=== PATIENT | male | born 1985 | race Caucasian/White ===

== ENCOUNTER 2016-12-10 09:56 | Emergency (ER) | payer OTHER ==
[2016-12-10 10:15] VITALS: TEMP 98.4
[2016-12-10] MEDS ORDERED: KETOROLAC 60 MG/2 ML VIAL IM STA (10:44)
--- NOTE | 2016-12-10 11:29 | XR ---
PA chest x-ray with left RIBS HISTORY: Injury and left-sided rib pain Frontal view of the chest correlated to prior chest x-ray 28 March 2012. 4 views of the left ribs There is no pneumothorax or pleural effusion. Cardiomediastinal silhouette, pulmonary vascularity and ana maría are stable. No displaced rib fracture. For increased sensitivity bone scan could be performed a s indicated. IMPRESSION: No acute abnormalities evident
--- NOTE | 2016-12-10 11:48 | ED ---
General Adult HPI - General Chief complaint: Extremity Problem,Nontraumatic Stated complaint: LEFT RIB PAIN Time Seen by Provider: 12/10/16 10:39 Source: patient Mode of arrival: ambulatory Limitations: no limitations - History of Present Illness Initial comments: This 30-year-old white male presents with colicky complaint of some left rib pain. This occurred 2 days ago after he sneezed. He felt a popping sensation in his left lateral chest at that time. He has had re-exacerbation of the pain every time he moves his left chest, coughs, or has deep inspiration. He has slight shortness of breath. He denies any prior similar incidents. He has tried some Motrin with limited relief. No other complaints or modifying factors. He denies any trauma. - Related Data Home Medications Medication Instructions Recorded Confirmed Ibuprofen [Motrin] 400 mg PO Q6HR PRN 12/10/16 12/10/16 Previous Rx's Medication Instructions Recorded Ibuprofen [Motrin] 800 mg PO Q8HR PRN #20 tab 12/10/16 traMADol HCl [Ultram] 50 - 100 mg PO Q6H PRN #15 tab 12/10/16 Allergies Allergy/AdvReac Type Severity Reaction Status Date / Time No Known Allergies Allergy Verified 12/10/16 11:20 Review of Systems ROS Statement: Those systems with pertinent positive or pertinent negative responses have been documented in the HPI. ROS Other: All systems not noted in ROS Statement are negative. Past Medical History Past Medical History: No Reported History History of Any Multi-Drug Resistant Organisms: None Reported Past Surgical History: Orthopedic Surgery Additional Past Surgical History / Comment(s): Knee scope Past Psychological History: No Psychological Hx Reported Smoking Status: Current every day smoker Past Alcohol Use History: None Reported Past Drug Use History: None Reported General Exam - General Exam Comments Initial Comments: GENERAL: The patient is well nourished and well hydrated. VITAL SIGNS: Heart rate, blood pressure, respiratory rate reviewed as recorded in nurse's notes. EYES: Pupils are round and reactive. Extraocular movements are intact. No conjunctival / lid redness or swelling. ENT: No external evidence of injury, swelling, or ecchymosis. Airway is patent. Throat is clear. NECK: Nontender. No swelling or evidence of injury. No subcutaneous emphysema. Trachea is midline. No thyroid mass. HEART: Regular rate and rhythm. Good peripheral pulses. LUNGS/CHEST: Breath sounds clear and equal bilaterally. No rales, rhonchi, or wheezes. There is some point tenderness noted to the left lateral inferior ribs. There is no subcutaneous emphysema or ecchymosis noted. ABDOMEN: Abdomen soft without tenderness. No palpable masses or organomegaly. No peritoneal signs. No abdominal wall swelling or ecchymosis. EXTREMITIES: No extremity tenderness. Normal muscle tone and function. No thoracolumbar tenderness. NEUROLOGIC: Sensation is grossly intact. Cranial nerve exam reveals face is symmetrical, tongue is midline, speech is clear. SKIN: No abrasions or ecchymosis is noted. No induration or masses noted. PSYCHIATRIC: Alert and oriented. Appropriate behavior and judgment. Limitations: no limitations Course Vital Signs 12/10/16 10:11 Temperature 98.4 F Pulse Rate 87 Respiratory 20 Rate Blood Pressure 140/89 O2 Sat by Pulse 96 Oximetry Medical Decision Making - Medical Decision Making The patient was seen and examined. A left rib and chest x-ray was done and reported per radiology does not show any acute processes. There is no evidence of pneumothorax or evidence of rib fracture. I reviewed the x-rays as well and agree. He receives Toradol intramuscularly with moderate relief of pain. She felt as though he does have a left rib strain and that he is stable for discharge. Is counseled regarding his condition in detail. Detail and leaves in no distress. Disposition Clinical Impression: Rib pain on left side Disposition: HOME SELF-CARE Condition: Good Instructions: Chest Wall Pain (ED) Prescriptions: Ibuprofen [Motrin] 800 mg PO Q8HR PRN #20 tab PRN Reason: Pain traMADol HCl [Ultram] 50 - 100 mg PO Q6H PRN #15 tab PRN Reason: Pain Referrals: Davey Harper MD [Primary Care Provider] - 12/15/16 Time of Disposition: 11:48
[2016-12-10 12:01] VITALS: BP 159/84; PULSE 79; RESP 16
== END 2016-12-10 12:01 | disposition home or self-care (01) ==
LOC: EC 09:56
DX: R07.81 Pleurodynia (principal); F17.200 Nicotine dependence, unspecified, uncomplicated
CPT/HCPCS: 99283; 96372; 71101; J1885

== ENCOUNTER 2021-06-21 16:49 | Emergency (ER) | payer OTHER ==
[2021-06-21 17:33] VITALS: TEMP 97.9
[2021-06-21] MEDS ORDERED: MORPHINE SULFATE IR 15 MG TABLET PO STA (18:02)
[2021-06-21] MEDS ORDERED: KETOROLAC 15 MG/ML 1 ML VIAL IVP STA (18:02)
--- NOTE | 2021-06-21 19:25 | XR ---
EXAMINATION TYPE: XR wrist complete LT DATE OF EXAM: 06/21/2021 COMPARISON: NONE HISTORY: Wrist pain TECHNIQUE: 3 views FINDINGS: There is transverse and longitudinal fracture of the distal radial metaphysis. Fracture tianna e extends to the radiocarpal joint. There is no dislocation. The carpal bones are intact. Distal ulna is intact. IMPRESSION: Acute nondisplaced transverse and longitudinal fracture of the distal radius.
--- NOTE | 2021-06-21 19:26 | XR ---
EXAMINATION TYPE: XR hand complete LT DATE OF EXAM: 06/21/2021 COMPARISON: NONE HISTORY: Pain TECHNIQUE: 3 views FINDINGS: Metacarpals are intact. There is some soft tissue swelling around the hand. The fingers are intact. IMPRESSION: No acute bony abnormality of the hand.
--- NOTE | 2021-06-21 19:27 | XR ---
EXAMINATION TYPE: XR elbow complete LT DATE OF EXAM: 06/21/2021 COMPARISON: NONE HISTORY: Pain TECHNIQUE: 3 views FINDINGS: I see no fracture nor dislocation. Joint spaces are normal. There is no sign of elbow joint effusion. IMPRESSION: Negative left elbow exam.
--- NOTE | 2021-06-21 19:28 | XR ---
EXAMINATION TYPE: XR forearm LT DATE OF EXAM: 06/21/2021 COMPARISON: NONE HISTORY: Wrist pain TECHNIQUE: 2 views FINDINGS: There is slightly impacted transverse fracture distal radial metaphysis. Fracture line also extends to the radiocarpal joint. The ulna is intact. Radiohumeral joint is normal. IMPRESSION: Acute fracture of the distal radius. No significant overall displacement.
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
[2021-06-21 22:02] VITALS: BP 105/68; PULSE 82; RESP 16
== END 2021-06-21 21:58 | disposition home or self-care (01) ==
LOC: EC 16:49
DX: S52.592A Other fractures of lower end of left radius, initial encounter for closed fracture (principal); F17.200 Nicotine dependence, unspecified, uncomplicated; Z79.1 Long term (current) use of non-steroidal anti-inflammatories (NSAID); V28.4XXA Motorcycle driver injured in noncollision transport accident in traffic accident, initial encounter; Y92.410 Unspecified street and highway as the place of occurrence of the external cause; Y93.55 Activity, bike riding
CPT/HCPCS: 73080; 73090; 73110; 73130; 29125; 99284; 96374; J1885

== ENCOUNTER 2022-03-24 15:35 | Emergency (ER) | payer OTHER ==
[2022-03-24 16:43] VITALS: RESP 16; TEMP 98
--- NOTE | 2022-03-24 17:34 | XR ---
EXAMINATION TYPE: XR shoulder complete RT DATE OF EXAM: 03/24/2022 COMPARISON: NONE HISTORY: Injury. Pain. TECHNIQUE: 3 views FINDINGS: There is comminuted nondisplaced fracture of the greater tuberosity of the humerus. There i s no dislocation at the shoulder joint. The scapula is intact. IMPRESSION: Comminuted fracture of the greater tuberosity of the humerus without significant displace ment.
--- NOTE | 2022-03-24 17:35 | XR ---
EXAMINATION TYPE: XR humerus RT DATE OF EXAM: 03/24/2022 COMPARISON: NONE HISTORY: Pain. Injury TECHNIQUE: 2 views FINDINGS: There is comminuted fracture of the greater tuberosity humerus. No significant displacement . The elbow joint appears intact IMPRESSION: Fracture of the greater tuberosity.
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
[2022-03-24 19:58] VITALS: BP 116/80; PULSE 69
== END 2022-03-24 19:55 | disposition home or self-care (01) ==
LOC: EC 15:35
DX: S42.251A Displaced fracture of greater tuberosity of right humerus, initial encounter for closed fracture (principal); F17.200 Nicotine dependence, unspecified, uncomplicated; V29.9XXA Motorcycle rider (driver) (passenger) injured in unspecified traffic accident, initial encounter; Y92.410 Unspecified street and highway as the place of occurrence of the external cause
CPT/HCPCS: 99284

== ENCOUNTER → 2022-04-24 | Outpatient (CLI) | payer BC, OTHER ==
--- NOTE | 2022-04-24 10:00 | CT ---
EXAMINATION TYPE: CT shoulder RT wo con DATE OF EXAM: 04/24/2022 COMPARISON: X-ray dated 03/24/2022 HISTORY: Rt Shoulder pain CT DLP: 297.4 mGycm Automated exposure control for dose reduction was used. TECHNIQUE: CT scan of the right shoulder without IV contrast administration. 3-D reconstruction image s were generated on an independent workstation and reviewed. FINDINGS: Comminuted fracture with focal lateral depression is seen involving the right humeral head greater tu berosity with multiple displaced bone fragments mainly seen along the posterior aspect of t he humeral head. This could represent sequela of previous dislocation with suspected associated Hill- Sachs injury. Please correlate clinically. No humeral head dislocation. No other definite fracture line identified. Tiny osteophytosis of the ac romioclavicular joint and inferior aspect of the glenohumeral articulation. No signs of rotator cuff tendinitis. Maintained acromiohumeral distance. IMPRESSION: Fractured lateral aspect of the humeral head with focal depression and suspected associated Hill-Sach s injury as described above, for clinical correlation and orthopedic consultation.
== END | disposition home or self-care (01) ==
LOC: RADCTMAIN 08:28
PROVIDERS: ATTEND Orthopaedic Surgery
DX: S42.251A Displaced fracture of greater tuberosity of right humerus, initial encounter for closed fracture (principal)

== ENCOUNTER 2024-05-13 21:18 | Observation (INO) | payer BC, OTHER ==
--- NOTE | 2024-05-13 21:33 | ED ---
Skin/Abscess/FB HPI - General Chief complaint: Skin/Abscess/Foreign Body Stated complaint: L hand abcess Time Seen by Provider: 05/13/24 21:30 Source: patient, RN notes reviewed Mode of arrival: ambulatory Limitations: no limitations - History of Present Illness Initial comments: This is a 38-year-old female presents emergency department chief complaint of an abscess to his second digit. Patient states that he noticed this abscess formed roughly 2 days ago, he believes that it started from an ingrown hair. Patient is endorsing pain of the second digit with mild radiation of the hand. He denies palmar pain, fevers, nausea, vomiting, weakness, abdominal pain. Patient states that he took a dose of penicillin this morning which she has had leftover from a previous prescription. Patient denies known history of MRSA infection. He denies recent injury of the affected finger. - Related Data Home Medications Medication Instructions Recorded Confirmed No Known Home Medications 05/14/24 05/14/24 Allergies Allergy/AdvReac Type Severity Reaction Status Date / Time No Known Allergies Allergy Verified 05/14/24 10:22 Review of Systems ROS Statement: Those systems with pertinent positive or pertinent negative responses have been documented in the HPI. ROS Other: All systems not noted in ROS Statement are negative. Past Medical History Past Medical History: No Reported History History of Any Multi-Drug Resistant Organisms: None Reported Past Surgical History: Orthopedic Surgery Additional Past Surgical History / Comment(s): Knee scope Past Psychological History: No Psychological Hx Reported Smoking Status: Current every day smoker Past Alcohol Use History: None Reported Past Drug Use History: None Reported General Exam Limitations: no limitations General appearance: alert, in no apparent distress Head exam: Present: atraumatic, normocephalic, normal inspection Eye exam: Present: normal appearance, PERRL, EOMI. Absent: scleral icterus, conjunctival injection, periorbital swelling ENT exam: Present: normal exam, mucous membranes moist Neck exam: Present: normal inspection. Absent: tenderness, meningismus, ly mphadenopathy Respiratory exam: Present: normal lung sounds bilaterally. Absent: respiratory distress, wheezes, rales, rhonchi, stridor Cardiovascular Exam: Present: regular rate, normal rhythm, normal heart sounds. Absent: systolic murmur, diastolic murmur, rubs, gallop, clicks GI/Abdominal exam: Present: soft, normal bowel sounds. Absent: distended, tenderness, guarding, rebound, rigid Left Hand Wrist exam: Present: tenderness (first MCP), swelling, erythema, other (Noted abscess with purulent drainage, erythema and edema. Pain with palpation. Patient is able to moderately flex affected finger.). Absent: normal inspection, ecchymosis Vascular: Present: radial pulse (2+). Absent: vascular compromise Back exam: Present: normal inspection Neurological exam: Present: alert, oriented X3, CN II-XII intact Psychiatric exam: Present: normal affect, normal mood Skin exam: Present: warm, dry, intact, normal color, other (See above extremity description for left first digit abscess, edema and erythema.). Absent: rash Course Vital Signs 05/13/24 05/14/24 21:26 00:01 Temperature 98.7 F 98.4 F Pulse Rate 112 H 105 H Respiratory 20 20 Rate Blood Pressure 145/87 142/85 O2 Sat by Pulse 97 98 Oximetry Medical Decision Making - Medical Decision Making Was pt. sent in by a medical professional or institution (OSIRIS Samson, [employer]PERVISOR, urgent care, hospital, or retirement...) When possible be specific @ -No Did you speak to anyone other than the patient for history (EMS, parent, family, police, friend...)? What history was obtained from this source @ -No Did you review nursing and triage notes (agree or disagree)? Why? @ -I reviewed and agree with nursing and triage notes Were old charts reviewed (outside hosp., previous admission, EMS record, old EKG, old radiological studies, urgent care reports/EKG's, retirement records)? Report findings @ -No old charts were reviewed Differential Diagnosis (chest pain, altered mental status, abdominal pain women, abdominal pain men, vaginal bleeding, weakness, fever, dyspnea, syncope, headach e, dizziness, GI bleed, back pain, seizure, CVA, palpatations, mental health, musculoskeletal)? @ -Cellulitis, osteomyelitis, abscess, this list is not all inclusive. EKG interpreted by me (3pts min.). @ -None X-rays interpreted by me (1pt min.). @ -xray of the left hand reveals inflammatory soft tissue edema and swelling persistent with mild flexion of the digits and regional osteopenia, small nondisplaced transverse fracture of the ulnar styloid. CT interpreted by me (1pt min.). @ -None done U/S interpreted by me (1pt. min.). @ -None done What testing was considered but not performed or refused? (CT, X-rays, U/S, labs)? Why? @ -None What meds were considered but not given or refused? Why? @ -None Did you discuss the management of the patient with other professionals (professionals i.e. , PA, [employer] SUPERVISOR, lab, RT, psych nurse, social economist, lawyer criminal, teacher, employment officer, watch case polisher)? Give summary @ -Spoke with [facility] midlevel provider, Mirna Torres NP, in regard to the patient's elevated white blood cell count and signs of infection including tachycardia and left first digit abscess and pain. Patient is accepted for admission, and he will be started on IV antibiotics. Was smoking cessation discussed for >3mins.? @ -No Was critical care preformed (if so, how long)? @ -No Were there social determinants of health that impacted care today? How? (Homelessness, low income, unemployed, alcoholism, drug addiction, transportation, low edu. Level, literacy, decrease access to med. care, [place] [facility], rehab)? @ -No Was there de-escalation of care discussed even if they declined (Discuss DNR or withdrawal of care, Hospice)? DNR status @ -No What co-morbidities impacted this encounter? (DM, HTN, Smoking, COPD, CAD, Cancer, CVA, ARF, Chemo, Hep., AIDS, mental health diagnosis, sleep apnea, morbid obesity)? @ -None Was patient admitted / discharged? Hospital course, mention meds given and route, prescriptions, significant lab abnormalities, going to OR and other pe rtinent info. @ -admitted 38-year-old male with left first digit abscess. On examination abscess has noted drainage, pain with palpation, erythema and edema. At this time labs will be ordered in addition to a x-ray of the hand. Evaluation of labs CBC reveals leukocytosis of 17, neutrophils of 15.2. CMP remarkable for hypokalmeia 3.3. Formal results of x-ray interpretation and internal medicine consulted for admission and IV antibiotics. Patient is excepted for admission and will be started on vancomycin. Additionally patient was provided with oral Tylenol and Motrin and pain medication due to a mildly elevated temperature and meeting SIRS criteria. He is also given a 1 L fluid bolus. Case discussed with my attending Dr. Corley Undiagnosed new problem with uncertain prognosis? @ -No Drug Therapy requiring intensive monitoring for toxicity (Heparin, Nitro, I nsulin, Cardizem)? @ -No Were any procedures done? @ -No Diagnosis/symptom? @ -Left hand first digit cellulitis with abscess Acute, or Chronic, or Acute on Chronic? @ -Acute Uncomplicated (without systemic symptoms) or Complicated (systemic symptoms)? @ -complicated Side effects of treatment? @ -No Exacerbation, Progression, or Severe Exacerbation? @ -No Poses a threat to life or bodily function? How? (Chest pain, USA, MS, pneumonia, PE, COPD, DKA, ARF, appy, cholecystitis, CVA, Diverticulitis, Homicidal, Suicidal, threat to staff... and all critical care pts) @ -Initially, untreated severe cellulitis with abscess can lead to bone involvement and further infection - Lab Data Result diagrams: 05/15/24 04:24 05/16/24 06:31 Lab Results 05/13/24 05/13/24 05/13/24 Range/Units 22:13 22:13 22:13 WBC 17.0 H (3.8-10.6) k/uL RBC 4.53 (4.30-5.90) m/uL Hgb 13.5 (13.0-17.5) gm/dL Hct 41.2 (39.0-53.0) % MCV 90.8 (80.0-100.0) fL MCH 29.9 (25.0-35.0) pg MCHC 32.9 (31.0-37.0) g/dL RDW 13.9 (11.5-15.5) % Plt Count 317 (150-450) k/uL MPV 8.0 Neutrophils % 89 % Lymphocytes % 5 % Monocytes % 4 % Eosinophils % 1 % Basophils % 0 % Neutrophils # 15.2 H (1.3-7.7) k/uL Lymphocytes # 0.9 L (1.0-4.8) k/uL Monocytes # 0.7 (0-1.0) k/uL Eosinophils # 0.1 (0-0.7) k/uL Basophils # 0.0 (0-0.2) k/uL Sodium 136 L (137-145) mmol/L Potassium 3.3 L (3.5-5.1) mmol/L Chloride 101 (98-107) mmol/L Carbon Dioxide 26 (22-30) mmol/L Anion Gap 9 mmol/L BUN 12 (9-20) mg/dL Creatinine 0.68 (0.66-1.25) mg/dL Est GFR (CKD-EPI)AfAm >90 (>60 ml/min/1.73 sqM) Est GFR (CKD-EPI)NonAf >90 (>60 ml/min/1.73 sqM) Glucose 133 H (74-99) mg/dL Plasma Lactic Acid Sebastian 1.7 (0.7-2.0) mmol/L Calcium 9.0 (8.4-10.2) mg/dL Total Bilirubin 1.0 (0.2-1.3) mg/dL AST 21 (17-59) U/L ALT 27 (4-49) U/L Alkaline Phosphatase 129 H (38-126) U/L Total Protein 6.9 (6.3-8.2) g/dL Albumin 4.0 (3.5-5.0) g/dL Disposition Clinical Impression: Cellulitis of finger of left hand Disposition: ADMITTED IP TO THIS [facility] Condition: Good Is patient prescribed a controlled substance at d/c from ED?: No Decision to Admit Reason: Admit from EC Decision Date: 05/14/24 Decision Time: 00:14
[2024-05-13 22:42] LABS: Basophils % (A) 0 %; Eosinophils # (A) 0.1 k/uL (0-0.7); Eosinophils % (A) 1 %; HCT 41.2 % (39.0-53.0); HGB 13.5 gm/dL (13.0-17.5); Lymphocytes # (A) 0.9 k/uL (1.0-4.8); Lymphocytes % (A) 5 %; MCH 29.9 pg (25.0-35.0); MCHC 32.9 g/dL (31.0-37.0); MCV 90.8 fL (80.0-100.0); Monocytes # (A) 0.7 k/uL (0-1.0); Monocytes % (A) 4 %; Neutrophils # (A) 15.2 k/uL (1.3-7.7); Neutrophils % (A) 89 %; Platelet Count 317 k/uL (150-450); RBC 4.53 m/uL (4.30-5.90); RDW 13.9 % (11.5-15.5)
[2024-05-13 22:58] LABS: ALT 27 U/L (4-49); AST 21 U/L (17-59); African American GFR (CKD) >90 (>60 ml/min/1.73 sqM); Alkaline Phosphatase 129 U/L (38-126); Anion Gap 9 mmol/L; Blood Urea Nitrogen 12 mg/dL (9-20); Carbon Dioxide 26 mmol/L (22-30); Chloride 101 mmol/L (98-107); Glucose 133 mg/dL (74-99); Non-African American GFR(CKD) >90 (>60 ml/min/1.73 sqM); Potassium 3.3 mmol/L (3.5-5.1); Sodium 136 mmol/L (137-145); Total Protein 6.9 g/dL (6.3-8.2)
[2024-05-13] MEDS: SODIUM CHLORIDE 0.9% 1,000 ML IV STA (23:45)
[2024-05-13] MEDS: HYDROmorphone 0.5 MG/0.5 ML SYRINGE IVP STA (23:51)
[2024-05-14] MEDS ORDERED: ACETAMINOPHEN TAB 325 MG TAB PO PRN (00:12)
[2024-05-14] MEDS ORDERED: NALOXONE 0.4 MG/ML 1 ML VIAL IV PRN (00:12)
[2024-05-14] MEDS ORDERED: VANCOMYCIN IV PER PHARMACY 1 EACH MISC MISCELLANE PRN (00:13)
--- NOTE | 2024-05-14 00:32 | XR ---
EXAM: XR Left Hand Complete, 3 or More Views CLINICAL HISTORY: ITS.REASON XR Reason: second digit abscess TECHNIQUE: Frontal, lateral and oblique views of the left hand. COMPARISON: None FINDINGS: Bones/joints: Mild osseous demineralization. A small nondisplaced transverse fracture of the ulna styloid. No bony destruction or other acute fracture noted. No dislocation. Soft tissues: Significant soft tissue edema/swelling of the left hand, most likely inflammatory/cellulitis. Persistent mild flexion of the second to fifth digit from the MCP and PIP joints. No radiopaque foreign body. Other findings: Mild degenerative arthrosis of the radiocarpal and medial carpometacarpal articulations.. IMPRESSION: Likely inflammatory soft tissue edema/swelling/cellulitis of the left hand with persistent mild flexion of the digits and regional osteopenia., Osteomyelitis is less likely but not ruled out. A small nondisplaced transverse fracture of the ulnar styloid. No bony destruction or periosteal thickening or sclerosis is evident. .
[2024-05-14] MEDS: ACETAMINOPHEN TAB 500 MG TAB PO STA (00:42)
[2024-05-14] MEDS: IBUPROFEN 800 MG TAB PO STA (00:42)
[2024-05-14] MEDS: VANCOMYCIN 1,750 MG in SODIUM CHLORIDE 0.9% 500 ML 500 ML IVPB ONE (02:06)
--- NOTE | 2024-05-14 10:30 | P.CNOR ---
History of Present Illness - [facility] Consult date: 05/14/24 Consult reason: other (Abscess left hand.) History of present illness: This is a 38-year-old male who presented to the emergency department last evening with increased swelling and redness to the left hand/index finger. The patient states that he had an ingrown hair on the dorsum of his index finger which she was able to remove and states that the hair was about an inch long. He states that it did break off and he was unable to retrieve the entire piece of hair. The area then began getting red and swollen. He developed some drainage from the area which caused him to seek medical treatment. He is admitt ed to internal medicine and is placed on IV vancomycin. We are consulted for orthopedic evaluation. The patient denies recent fever or chills. The patient is a current everyday smoker. His white blood cell count is elevated at 17 on admission. Past Medical History Past Medical History: No Reported History History of Any Multi-Drug Resistant Organisms: None Reported Past Surgical History: Orthopedic Surgery Additional Past Surgical History / Comment(s): Right knee scope Past Psychological History: No Psychological Hx Reported Smoking Status: Current every day smoker Past Alcohol Use History: None Reported Past Drug Use History: None Reported Medications and Allergies Home Medications Medication Instructions Recorded Confirmed Type No Known Home Medications 05/14/24 05/14/24 History Allergies Allergy/AdvReac Type Severity Reaction Status Date / Time No Known Allergies Allergy Verified 05/14/24 10:22 Physical Examination This is a pleasant 38-year-old male in no acute distress. He is alert and oriented x 3. Exam of the left hand reveals redness and swelling to the index finger. There is some opening with mild purulent drainage on the dorsal aspect. He has full extension of the finger with limited flexion. He has no tenderness or swelling on the palmar aspect of the hand. Nontender over the flexor tendon sheath. Neurovascular status to the upper extremity is intact. Results X-rays of the left hand reveal no acute bony abnormality. There is no obvious foreign body noted. - Labs Labs: Abnormal Lab Results - Last 24 Hours (Table) 05/13/24 05/13/24 Range/Units 22:13 22:13 WBC 17.0 H (3.8-10.6) k/uL Neutrophils # 15.2 H (1.3-7.7) k/uL Lymphocytes # 0.9 L (1.0-4.8) k/uL Sodium 136 L (137-145) mmol/L Potassium 3.3 L (3.5-5.1) mmol/L Glucose 133 H (74-99) mg/dL Alkaline Phosphatase 129 H (38-126) U/L H & H 05/13/24 Range/Units 22:13 Hgb 13.5 (13.0-17.5) gm/dL Hct 41.2 (39.0-53.0) % Result Diagrams: 05/13/24 22:13 05/13/24 22:13 Assessment and Plan (1) Cellulitis of finger of left hand Current Visit: Yes Status: Acute Code(s): L03.012 - CELLULITIS OF LEFT FINGER SNOMED Code(s): 63877206 Plan: The clinical findings are discussed with the patient. He will continue warm soaks with antibacterial solution today. Continue IV vancomycin. I will make him n.p.o. after midnight tonight for possible irrigation and debridement of the wound tomorrow morning if no improvement.
--- NOTE | 2024-05-14 10:51 | P.HPIM ---
History of Present Illness Patient is a 8-year-old male admitted for infection of the left hand and index finger following an ingrown hair and picking on the ingrown hair. Patient is presently on vancomycin at this time any history of MRSA in the past. Patient does appear to have abscess on the medial side of the left hand. Patient was ordered by orthopedic surgery and they are planning on incision and drainage tomorrow. Patient does smoke 7 cigarettes/day. Patient does have leukocytosis, 17,000. Patient does not have any fever does is tachycardic. REVIEW OF SYSTEMS: CONSTITUTIONAL: No fever, no malaise, no fatigue. HEENT: No recent visual problems or hearing problems. Denied any sore throat. CARDIOVASCULAR: No chest pain, orthopnea, PND, no palpitations, no syncope. PULMONARY: No shortness of breath, no cough, no hemoptysis. GASTROINTESTINAL: No diarrhea, no nausea, no vomiting, no abdominal pain. NEUROLOGICAL: No headaches, no weakness, no numbness. HEMATOLOGICAL: Denies any bleeding or petechiae. GENITOURINARY: Denies any burning micturition, frequency, or urgency. MUSCULOSKELETAL/RHEUMATOLOGICAL: As mentioned in HPI ENDOCRINE: Denies any polyuria or polydipsia. The rest of the 14-point review of systems is negative. PHYSICAL EXAMINATION: GENERAL: The patient is alert and oriented x3, not in any acute distress. Well developed, well nourished. HEENT: Pupils are round and equally reacting to light. EOMI. No scleral icterus. No conjunctival pallor. Normocephalic, atraumatic. No pharyngeal erythema. No thyromegaly. CARDIOVASCULAR: S1 and S2 present. No murmurs, rubs, or gallops. PULMONARY: Chest is clear to auscultation, no wheezing or crackles. ABDOMEN: Soft, nontender, nondistended, normoactive bowel sounds. No palpable organomegaly. MUSCULOSKELETAL: Left hand swelling and abscess with left index finger ulcer EXTREMITIES: No cyanosis, clubbing, or pedal edema. NEUROLOGICAL: Gross neurological examination did not reveal any focal deficits. SKIN: As mentioned above Assessment and plan -Left hand abscess/cellulitis/index finger ulcer: Patient probably can be switched to cefazolin, ID was consulted presently on vancomycin. Orthopedic surgery evaluated the patient patient will undergo incision and drainage tomorrow -Tachycardia: Secondary to sepsis patient will be started on IV fluids until t omorrow morning -Nicotine use: Counseling was provided DVT prophylaxis: Early ambulation GI prophylaxis Pepcid Past Medical History Past Medical History: No Reported History History of Any Multi-Drug Resistant Organisms: None Reported Past Surgical History: Orthopedic Surgery Additional Past Surgical History / Comment(s): Right knee scope Past Psychological History: No Psychological Hx Reported Smoking Status: Current every day smoker Past Alcohol Use History: None Reported Past Drug Use History: None Reported Medications and Allergies Home Medications Medication Instructions Recorded Confirmed Type No Known Home Medications 05/14/24 05/14/24 History Allergies Allergy/AdvReac Type Severity Reaction Status Date / Time No Known Allergies Allergy Verified 05/14/24 10:22 Physical Exam Vitals: Vital Signs Temp Pulse Pulse Resp BP BP Pulse Ox 05/14/24 07:00 98.6 F 72 16 120/74 97 05/14/24 02:42 98.9 F 84 16 138/82 96 05/14/24 02:00 20 05/14/24 00:01 98.4 F 105 H 20 142/85 98 05/13/24 21:26 98.7 F 112 H 20 145/87 97 Intake and Output 05/13/24 05/14/24 05/14/24 22:59 06:59 14:59 Intake Total 118 Balance 118 Intake: Oral 118 Other: Voiding Method Toilet # Voids 2 Weight 104.326 kg 104.326 kg Results CBC & Chem 7: 05/13/24 22:13 05/13/24 22:13 Labs: Abnormal Lab Results - Last 24 Hours (Table) 05/13/24 05/13/24 Range/Units 22:13 22:13 WBC 17.0 H (3.8-10.6) k/uL Neutrophils # 15.2 H (1.3-7.7) k/uL Lymphocytes # 0.9 L (1.0-4.8) k/uL Sodium 136 L (137-145) mmol/L Potassium 3.3 L (3.5-5.1) mmol/L Glucose 133 H (74-99) mg/dL Alkaline Phosphatase 129 H (38-126) U/L Thrombosis Risk Factor Assmnt - Choose All That Apply Any of the Below Risk Factors Present?: Yes Each Factor Represents 1 point: Obesity (BMI >25) Other Risk Factors: No Other congenital or acquired thrombophilia - If yes, enter type in comment: No Thrombosis Risk Factor Assessment Total Risk Factor Score: 1 Thrombosis Risk Factor Assessment Level: Low Risk
[2024-05-14] MEDS: VANCOMYCIN 1,750 MG in SODIUM CHLORIDE 0.9% 500 ML 500 ML IVPB SCH (11:19)
[2024-05-14] MEDS: SODIUM CHLORIDE 0.9% 1,000 ML IV SCH (11:20)
[2024-05-14] MEDS: IBUPROFEN 400 MG TAB PO PRN (11:30)
[2024-05-14] MEDS: FAMOTIDINE 20 MG TAB PO SCH (11:44)
[2024-05-14] MEDS: HYDROmorphone 0.5 MG/0.5 ML SYRINGE IVP PRN (11:49)
[2024-05-14] MEDS ORDERED: KETOROLAC 15 MG/ML 1 ML VIAL IVP SCH (18:00)
[2024-05-14] MEDS: KETOROLAC 15 MG/ML 1 ML VIAL IVP PRN (18:18)
--- NOTE | 2024-05-15 09:16 | P.CONS ---
History of Present Illness - Reason for Consult Consult date: 05/14/24 - History of Present Illness Patient is a 38-year-old male with no significant past medical history current everyday smoker presenting to the hospital for evaluation of increasing swelling redness and pain to the right second finger patient mention he noticed a small boil on the dorsal aspect of the right second finger which she tried to squeeze it subsequently patient noticed to have increasing swelling redness and pain to the right second finger patient describing the pain to be throbbing almost 10-10 extremities on presentation to the hospital with some improvement with the pain medication patient did have minimal drainage with the symptoms the patient has been evaluated on presentation to the hospital the patient was afebrile and no fever have been recorded subsequently patient was mildly tachycardic but not hypotensive or hypoxic did have white count of 17,000 with a left shift creatinine 0.68 blood culture pressure currently pending patient did have x-ray of the hand intermittent soft tissue edema of the left hand with persistent mild flexion of the digits and regional osteopenia patient has been started on a vancomycin infectious disease was consulted for further management patient has already been evaluated by orthopedic surgery and planning for I&D of the area Past Medical History Past Medical History: No Reported History History of Any Multi-Drug Resistant Organisms: None Reported Past Surgical History: Orthopedic Surgery Additional Past Surgical History / Comment(s): Right knee scope Past Psychological History: No Psychological Hx Reported Smoking Status: Current every day smoker Past Alcohol Use History: None Reported Past Drug Use History: None Reported Medications and Allergies Home Medications Medication Instructions Recorded Confirmed Type No Known Home Medications 05/14/24 05/14/24 History Allergies Allergy/AdvReac Type Severity Reaction Status Date / Time No Known Allergies Allergy Verified 05/14/24 10:22 Physical Exam Vitals: Vital Signs Temp Pulse Pulse Resp BP BP Pulse Ox 05/14/24 07:00 98.6 F 72 16 120/74 97 05/14/24 02:42 98.9 F 84 16 138/82 96 05/14/24 02:00 20 05/14/24 00:01 98.4 F 105 H 20 142/85 98 05/13/24 21:26 98.7 F 112 H 20 145/87 97 Intake and Output 05/13/24 05/14/24 05/14/24 22:59 06:59 14:59 Intake Total 118 Balance 118 Intake: Oral 118 Other: Voiding Method Toilet # Voids 2 Weight 104.326 kg 104.326 kg Results CBC & Chem 7: 05/13/24 22:13 05/13/24 22:13 Labs: Abnormal Lab Results - Last 24 Hours (Table) 05/13/24 05/13/24 Range/Units 22:13 22:13 WBC 17.0 H (3.8-10.6) k/uL Neutrophils # 15.2 H (1.3-7.7) k/uL Lymphocytes # 0.9 L (1.0-4.8) k/uL Sodium 136 L (137-145) mmol/L Potassium 3.3 L (3.5-5.1) mmol/L Glucose 133 H (74-99) mg/dL Alkaline Phosphatase 129 H (38-126) U/L Assessment and Plan Plan: 1patient was in the hospital with sepsis in this patient who did have a tachycardia elevated white count source is right second digit abscess and cellulitis likely from gram-positive skin karol with a question of MSSA or MRSA. 2await surgical drainage and deep culture that will also determine the depth of this infection. 3vancomycin pharmacy to dose target trough of 15 while watching kidney function and Vanco trough closely. Question concern answered. We will follow on clinical condition and cultures to further adjust medication if needed Thank you for this consultation we will follow the patient along with you Dictation was produced using [employer] dictation software. please excuse any grammatical, word or spelling errors. Time with Patient: Greater than 30
[2024-05-15] MEDS: VANCOMYCIN TROUGH DUE 1 EACH MISC MISCELLANE ONE (09:40)
[2024-05-15] MEDS: IV FLUID CONTINUATION 900 ML IV ONE (10:45)
[2024-05-15] MEDS: DEXAMETHASONE SOD PHOSPHATE 4 MG/ML 1 ML VIAL IVP STA (10:54)
[2024-05-15] MEDS: ONDANSETRON 4 MG/2 ML VIAL IVP STA (10:54)
[2024-05-15 10:57] LABS: Basophils # (A) 0.03 X 10*3/uL (0.00-0.10); Basophils % (A) 0.3 %; Eosinophils # (A) 0.18 X 10*3/uL (0.04-0.35); Eosinophils % (A) 1.8 %; HCT 35.8 % (39.6-50.0); HGB 11.8 g/dL (13.0-17.0); Lymphocytes # (A) 1.37 X 10*3/uL (0.90-5.00); Lymphocytes % (A) 13.5 %; MCH 30.6 pg (27.0-32.0); Mean Platelet Volume 10.6 FL (9.5-12.2); Monocytes # (A) 0.67 X 10*3/uL (0.20-1.00); Monocytes % (A) 6.6 %; NRBC Per 100 WBC 0 X 10*3/uL (0.00-0.01); Neutrophils # (A) 7.83 X 10*3/uL (1.80-7.70); Neutrophils % (A) 77.4 %; Platelet Count 283 X 10*3/uL (140-440); RBC 3.85 X 10*6/uL (4.40-5.60); RDW 13.7 % (11.5-14.5); WBC 10.12 X 10*3/uL (4.50-10.00)
[2024-05-15 10:59] LABS: ALT 21 U/L (10-49); AST 15 U/L (14-35); Albumin 3.3 g/dL (3.8-4.9); Alkaline Phosphatase 98 U/L (41-126); BUN/Creat Ratio 8.29 Ratio (12.00-20.00); Blood Urea Nitrogen 5.8 mg/dL (9.0-27.0); Carbon Dioxide 24.2 mmol/L (21.6-31.8); Chloride 106 mmol/L (96-109); Globulin 2.2 g/dL (1.6-3.3); Glucose 103 mg/dL (70-110); Potassium 3.3 mmol/L (3.5-5.5); Sodium 139 mmol/L (135-145); Total Bilirubin 0.2 mg/dL (0.3-1.2); Total Protein 5.5 g/dL (6.2-8.2)
[2024-05-15] MEDS ORDERED: LIDOCAINE 1% INJ 10MG/ML (20 ML MDV) ONE (11:08)
[2024-05-15] MEDS ORDERED: MIDAZOLAM 2 MG/2 ML VIAL ONE (11:08)
[2024-05-15] MEDS ORDERED: PROPOFOL 10 MG/ML 20 ML VIAL IV ONE (11:08)
[2024-05-15] MEDS ORDERED: KETOROLAC 15 MG/ML 1 ML VIAL ONE (11:08)
[2024-05-15] MEDS ORDERED: fentaNYL (PF) 50 MCG/ML 2 ML AMP ONE (11:08)
[2024-05-15] MEDS: ceFAZolin 1,000 MG in SODIUM CHLORIDE 0.9% 1,000 ML IRRIGATION ONE (11:31)
[2024-05-15] MEDS ORDERED: HYDROcodone/APAP 5-325MG 1 EACH TAB PO PRN (11:49)
--- NOTE | 2024-05-15 11:56 | P.OP ---
Date of Procedure: 05/15/24 Preoperative Diagnosis: 1. Left index finger abscess 2. Current every day cigarette smoker Postoperative Diagnosis: Same Procedure(s) Performed: Left index finger irrigation and debridement ( an excisional debridement of all nonviable skin and subcutaneous tissue down to the level of the extensor tendon sheath was performed using a scalpel) Anesthesia: AMEYA Surgeon: Abbi Perez Estimated Blood Loss (ml): 100 IV fluids (ml): 300 Pathology: none sent Condition: stable Disposition: PACU Indications for Procedure: the patient is a 38 old male with a medical history significant for cigarette smoking who presented to our hospital with an infection in his left index finger. The patient states that he picked an ingrown hair that gradually became infected. He was found to have a large draining abscess over the dorsal aspect of the left hand centered at the base of the index finger. Due to the condition of the hand I recommended formal irrigation and debridement in the operating room. We discussed potential risks and complication of surgery including this or not limited to risks from anesthesia, continued or worsened infection, wound healing issues, damage to local blood vessels or nerves, damage to the extensor tendon, spread of infection, need for further surgery, and possibly loss of life or limb. The patient understands that he is at high risk for complications due to his cigarette smoking. He was strongly encouraged to quit smoking. Operative Findings: there was gross purulence in the subcutaneous space down to the extensor tendon sheath. The extensor tendon sheath and joint did not appear to be infected. The skin over the dorsal aspect of the MCP joint and base of the index finger was extremely tenuous. Description of Procedure: patient is in for in preoperative holding and the correct left hand and index finger were marked with my initials. I reviewed the consent form with the patient. All his questions were answered. The patient was then brought back to the operating room. He was given a general anesthetic and preoperative antibiotics. A nonsterile drape was applied and the arm was positioned on a hand table. The left hand was then prepped and draped in the standard sterile fashion. Prior to starting surgery timeout was performed identifying the correct patient, operative extremity, and procedure. I began by outlining a zigzag incision over the dorsal base of the index finger extending over the MCP joint and into the dorsum of the hand. There were several small open wounds that were incorporated into the zigzag incision. Skin incision was made with a scalpel and immediately upon making skin incision was a large rivera of gross purulence. Deep cultures were taken. An excisional debridement was performed of all nonviable skin and subcutaneous tissue down to the extensor tendon sheath which did not appear to be violated. The wound was then thoroughly irrigated. Upon completion of the irrigation and debridement the wound appeared clean. Incision was gently reapproximated using 3-0 nylon horizontal mattress sutures. The skin over the dorsal aspect of the MCP joint and index finger was tenuous. Upon completing the procedure the tip of the finger had brisk capillary refill. A sterile dressing was loosely applied followed by an Carlos Manuel wrap. The patient was awoken from his anesthetic, transferred from there [facility] table to [facility], and brought to recovery having tolerated the procedure well. Plan: IV antibiotics per infectious disease. Our service will take the dressing down in 1-2 days after which we will defer wound care and dressing changes to infectious disease.
[2024-05-15] MEDS: HYDROmorphone 0.5 MG/0.5 ML SYRINGE IVP ONE (12:42)
--- NOTE | 2024-05-15 15:38 | P.PN ---
Subjective Progress Note Date: 05/15/24 Patient is a 8-year-old male admitted for infection of the left hand and index finger following an ingrown hair and picking on the ingrown hair. Patient is presently on vancomycin at this time any history of MRSA in the past. Patient does appear to have abscess on the medial side of the left hand. Patient was ordered by orthopedic surgery and they are planning on incision and drainage tomorrow. Patient does smoke 7 cigarettes/day. Patient does have leukocytosis, 17,000. Patient does not have any fever does is tachycardic. 05/15/2024 Patient evaluated today in recovery he underwent I and D of the left hand abscess today with over 100 mls of fluid removed. Patient having improved pain today to the left hand. He continues on IV vancomycin. Cultures are pending. ID following. Review of Systems Constitutional: Denied any fatigue denied any fever. Cardio vascular: denied any chest pain, palpitations Gastrointestinal: denied any nausea, vomiting, diarrhea Pulmonary: Denied any shortness of breath cough Neurologic denied any new focal deficits All inpatient medications were reviewed and appropriate changes in these medications as dictated in the interval history and assessment and plan. PHYSICAL EXAMINATION: GENERAL: The patient is alert and oriented x3, not in any acute distress. Well developed, well nourished. HEENT: Pupils are round and equally reacting to light. EOMI. No scleral icterus. No conjunctival pallor. Normocephalic, atraumatic. No pharyngeal erythema. No thyromegaly. CARDIOVASCULAR: S1 and S2 present. No murmurs, rubs, or gallops. PULMONARY: Chest is clear to auscultation, no wheezing or crackles. ABDOMEN: Soft, nontender, nondistended, normoactive bowel sounds. No palpable organomegaly. MUSCULOSKELETAL: Left hand swelling and abscess with left index finger ulcer EXTREMITIES: No cyanosis, clubbing, or pedal edema. NEUROLOGICAL: Gross neurological examination did not reveal any focal deficits. SKIN: As mentioned above Dressing intact. Assessment and plan -Left hand abscess/cellulitis/index finger ulcer: ID was consulted presently on vancomycin. Orthopedic surgery following. Patient underwent I and D of the abscess today. Drainage sent for culture. -Tachycardia: Secondary to sepsis improved with IV fluids. -Nicotine use: Counseling was provided DVT prophylaxis: Early ambulation GI prophylaxis Pepcid The impression and plan of care has been dictated by Mirna Torres, Nurse Practitioner as directed. Dr. Kat MD I have performed a history and physical examination and medical decision making of this patient, discussed the same with the dictator, and agree with the dictators assessment and plan as written, documented as a scribe. Based on total visit time, I have performed more than 50% of this visit. Objective - Vital Signs Vital signs: Vital Signs Temp 97.8 F 05/15/24 14:48 Pulse 103 H 05/15/24 14:48 Resp 16 05/15/24 14:48 BP 133/69 05/15/24 14:48 Pulse Ox 97 05/15/24 14:48 FiO2 Intake & Output 05/14/24 05/15/24 05/15/24 18:59 06:59 18:59 Intake Total 236 519 Output Total 100 Balance 236 419 Intake: IV 401 Oral 236 118 Output: Estimated Blood Loss 100 Other: Voiding Method Toilet # Voids 3 2 3 - Labs CBC & Chem 7: 05/15/24 04:24 05/15/24 04:24 Labs: Abnormal Lab Results - Last 24 Hours (Table) 05/15/24 05/15/24 Range/Units 04:24 04:24 WBC 10.12 H (4.50-10.00) X 10*3/uL RBC 3.85 L (4.40-5.60) X 10*6/uL Hgb 11.8 L (13.0-17.0) g/dL Hct 35.8 L (39.6-50.0) % Neutrophils # 7.83 H (1.80-7.70) X 10*3/uL Potassium 3.3 L (3.5-5.5) mmol/L BUN 5.8 L (9.0-27.0) mg/dL BUN/Creatinine Ratio 8.29 L (12.00-20.00) Ratio Calcium 8.0 L (8.7-10.3) mg/dL Total Bilirubin 0.2 L (0.3-1.2) mg/dL Total Protein 5.5 L (6.2-8.2) g/dL Albumin 3.3 L (3.8-4.9) g/dL Albumin/Globulin Ratio 1.50 L (1.60-3.17) Ratio Microbiology - Last 24 Hours (Table) 05/14/24 01:40 Gram Stain - Preliminary Finger - Left Second Wound Culture - Preliminary Presumptive Staph aureus 05/13/24 23:46 Blood Culture - Preliminary Blood 05/13/24 23:31 Blood Culture - Preliminary Blood Assessment and Plan Time with Patient: Less than 30
[2024-05-15] MEDS: POTASSIUM CHLORIDE ER 20 MEQ TAB.ER PO SCH (17:18)
[2024-05-15 19:48] VITALS: RESP 15
[2024-05-16 03:29] VITALS: BP 161/85; PULSE 78; TEMP 98.1
[2024-05-16 07:18] LABS: African American GFR (CKD) >90 (>60 ml/min/1.73 sqM); Non-African American GFR(CKD) >90 (>60 ml/min/1.73 sqM)
--- NOTE | 2024-05-16 08:49 | P.PN ---
Subjective Progress Note Date: 05/15/24 Principal diagnosis: Reason for follow-up is left index finger abscess and cellulitis Patient is a 38-year-old male with no significant past medical history current everyday smoker presenting to the hospital for evaluation of increasing swelling redness and pain to the left second finger, patient be diagnosed with the right second digit abscess and cellulitis. Patient is status post I&D of the left index finger down to the extensor tendon sheath, procedure completed on 05/15/2024. On today's evaluation that is 05/15/2024,the patient remains to be afebrile, patient is on room air not requiring supplemental oxygen and denies any shortness of breath no chest pain or cough.Patient denies having any nausea or vomiting, no abdominal pain and no diarrhea denies any worsening pain to the left index finger. Patient white count is down to 10.12, creatinine 0.7 culture with presumptive Staph aureus Objective - Vital Signs Vital signs: Vital Signs Temp 97.3 F L 05/15/24 11:53 Pulse 89 05/15/24 13:05 Resp 16 05/15/24 13:05 BP 115/67 05/15/24 13:05 Pulse Ox 97 05/15/24 13:05 FiO2 Intake & Output 05/14/24 05/15/24 05/15/24 18:59 06:59 18:59 Intake Total 236 401 Output Total 100 Balance 236 301 Intake: IV 401 Oral 236 Output: Estimated Blood Loss 100 Other: Voiding Method Toilet # Voids 3 2 - Exam GENERAL DESCRIPTION: An elderly male lying in bed in no distress RESPIRATORY SYSTEM: Unlabored breathing , decreased breath sounds at bases HEART: S1 S2 regular rate and rhythm , ABDOMEN: Soft , no tenderness EXTREMITIES: Left hand is currently dressed - Labs CBC & Chem 7: 05/15/24 04:24 05/16/24 06:31 Labs: Abnormal Lab Results - Last 24 Hours (Table) 05/15/24 05/15/24 Range/Units 04:24 04:24 WBC 10.12 H (4.50-10.00) X 10*3/uL RBC 3.85 L (4.40-5.60) X 10*6/uL Hgb 11.8 L (13.0-17.0) g/dL Hct 35.8 L (39.6-50.0) % Neutrophils # 7.83 H (1.80-7.70) X 10*3/uL Potassium 3.3 L (3.5-5.5) mmol/L BUN 5.8 L (9.0-27.0) mg/dL BUN/Creatinine Ratio 8.29 L (12.00-20.00) Ratio Calcium 8.0 L (8.7-10.3) mg/dL Total Bilirubin 0.2 L (0.3-1.2) mg/dL Total Protein 5.5 L (6.2-8.2) g/dL Albumin 3.3 L (3.8-4.9) g/dL Albumin/Globulin Ratio 1.50 L (1.60-3.17) Ratio Microbiology - Last 24 Hours (Table) 05/14/24 01:40 Wound Culture - Preliminary Finger - Left Second Presumptive Staph aureus 05/13/24 23:46 Blood Culture - Preliminary Blood 05/13/24 23:31 Blood Culture - Preliminary Blood Assessment and Plan (1) Cellulitis of finger of left hand Status: Acute Code(s): L03.012 - CELLULITIS OF LEFT FINGER SNOMED Code(s): 55743490 Plan: 1patient presented to the hospital with sepsis in this patient who did have a tachycardia elevated white count source is left second digit abscess and cellulitis likely from gram-positive skin karol with a question of MSSA or MRSA. 2patient is status post surgical drainage and deep culture which are currently pending infection was extending down to the extensor sheet 3local culture growing Staph aureus sensitivities pending continue with the vancomycin while waiting for the culture to finalize Dictation was produced using [employer] dictation software. please excuse any grammatical, word or spelling errors. Time with Patient: Less than 30
--- NOTE | 2024-05-18 15:46 | P.DS ---
Providers Date of admission: 05/14/24 00:12 Attending physician: Brian Carpenter Consults: 05/14/24 03:19 Consult Physician Routine Consulting Provider: Ismael Perez Consult Reason/Comments: Transverse fracture of ulnar styloid Do you want consulting provider notified?: Yes, Notify in am 05/14/24 10:38 Consult Physician Routine Consulting Provider: Stephane Carrillo Consult Reason/Comments: cellulitis Do you want consulting provider notified?: Yes Primary care physician: Claudine Love [facility] Course: Final Diagnosis -Left hand abscess/cellulitis/index finger ulcer: ID was consulted presently on vancomycin. Orthopedic surgery following. Patient underwent I and D of the abscess Drainage sent for culture. -Tachycardia: Secondary to sepsis improved with IV fluids. Discharge Disposition Patient left AGAINST MEDICAL ADVICE the morning after getting an I&D of his left hand abscess/cellulitis. Patient was not given antibiotics for discharge. Hospital Course Patient is a 38-year-old male admitted for infection of the left hand and index finger following an ingrown hair and picking on the ingrown hair. Patient is presently on vancomycin at this time any history of MRSA in the past. Patient does appear to have abscess on the medial side of the left hand. Patient was ordered by orthopedic surgery and they are planning on incision and drainage tomorrow. Patient does smoke 7 cigarettes/day. Patient does have leukocytosis, 17,000. Patient does not have any fever does is tachycardic. Patient went for I&D of the abscess. His cultures have all come back showing Staphylococcus aureus. No evidence for MRSA. He left AGAINST MEDICAL ADVICE on May 16 early in the morning. Not seen by the provider that day. Please see medication reconciliation for a list of current medications. Thank you for allowing us to participate in the care of this patient. The impression and plan of care has been dictated by Mirna Torres Nurse Practitioner as directed. Dr. Kat MD I have performed a history and physical examination and medical decision making of this patient, discussed the same with the dictator, and agree with the dictators assessment and plan as written, documented as a scribe. Based on total visit time, I have performed more than 50% of this visit. Patient Condition at Discharge: Good Plan - Discharge Summary Discharge Rx Participant: No New Discharge Prescriptions: No Action No Known Home Medications Discharge Medication List No Known Home Medications 05/14/24 [History] Follow up Appointment(s)/Referral(s): Claudine Love MD [Primary Care Provider] - 1-2 days Patient Instructions/Handouts: Cellulitis (ED) Discharge Disposition: LEFT AGAINST MEDICAL ADVICE
== END 2024-05-16 07:10 | disposition left against medical advice (07) ==
LOC: EC 21:18 → 6NMEDSUR 05-14 00:12
PROVIDERS: ADMIT Internal Medicine; ATTEND Internal Medicine
DX: A41.9 Sepsis, unspecified organism (principal); L03.011 Cellulitis of right finger; L02.512 Cutaneous abscess of left hand; F17.210 Nicotine dependence, cigarettes, uncomplicated; Z86.14 Personal history of Methicillin resistant Staphylococcus aureus infection; Z53.29 Procedure and treatment not carried out because of patient's decision for other reasons
CPT/HCPCS: 96376 ×2; 96361 ×2; 96365; 96366 ×3; 96375 ×2; 99284; 36415; 80053 ×2; 82565; 83605; 85025 ×2; 80202; 87040; 87070 ×2; 87205 ×2; 87075 ×2; 87077 ×2; 87186 ×2; 73130; 26011; G0378 ×3; J2250; J3370 ×3; J1100; J2405; J0690; J2001; J3010; J1885 ×2; J2704; J1170 ×3